=== PATIENT | female | born 1980 | race American Indian/Alaskan Native ===

== ENCOUNTER 2021-04-24 06:03 | Day surgery (SDC) | payer MEDICAID ==
--- NOTE | 2021-04-24 00:07 | History and Physical Report ---
History of Present Illness Date of examination: 04/21/21 History of present illness: 40 year old female with missed Medical and surgical treatment options discussed Discussed risks and benefits of expectant management, treatments with medications and dilatation and curretage. Patient desires dilatation and curr etage ] Vital Signs: Patient Profile: 40 Years Old Female LMP: 01/06/2021 Height: 65 inches Weight: 179 pounds BMI: 29.78 Temp: 98.0 degrees F BP sittin / 90 (left arm) Menstrual History: LMP (date): 01/06/2021 On BCP's at conception: no Current Method of Contraception: None Date of Last Pap Smear: 02/14/2021 Past History : 4 Term Births: 0 Premature Births: 2 Living Children: 2 Para: 2 Mult. Births: 0 Prev : 2 Aborta: 1 Elect. Ab: 0 Spont. Ab: 1 Ectopics: 0 # 1 Delivery date: 2001 Weeks Gestation: Full Term labor: no Delivery type: Stillbirtt Comments: Didn't given details about dleivery. Pt very vague about details of delivery. States , unknown cause. Possible thyroid disease, had symptoms similar to stroke. # 2 Delivery date: 2007 Weeks Gestation: 36 labor: yes Delivery type: Anesthesia type: spinal Infant Sex: Female weight: 5-11 Comments: d/t placenta previa. # 3 Delivery date: 2018 Weeks Gestation: 36 labor: yes Delivery type: Anesthesia type: spinal Delivery location: [place] weight: 5-3 Comments: Had Pre Eclampsia, was on magnesium after delivery. No weight gain in . # 4 Delivery type: SAB Comments: Doesn't remember too many details. Only that there were no complications or D&C needed. Active Medications: clonidine HCl 0.1 mg tablet (clonidine hcl) Take 1 tablet by mouth twice a day nifedipine 90 mg tablet extended release 24hr (nifedipine) Take 1 tablet by mouth once a day hydrochlorothiazide 25 mg tablet (hydrochlorothiazide) Aspirin Low Dose 81 mg tablet,delayed release (DR/EC) (aspirin) Current Allergies: * LATEX * IBUPROFEN Past Medical History: Hypertension Possibl Stroke/CVA 04/2020 Patient states had some memory loss Past Surgical History: X 2 2007, 2018 Tonsillectomy Nasal and sinus surgery Family History Summary: Uncle - Has Family History of Hypertension - Entered On: 02/14/2021 Uncle - Has Family History of CVA or Stroke - Entered On: 02/14/2021 PGF - Has Family History of Hypertension - Entered On: 02/14/2021 Father - Has Family History of Hypertension - Entered On: 02/14/2021 Mother - Has Family History of Hypertension - Entered On: 02/14/2021 Social History: Patient is Smoking History: Patient has never smoked. 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 Denies vaginal discharge, incontinence, dysuria, hematuria, urinary frequency, amenorrhea, menorrhagia, abnormal vaginal bleeding, pelvic pain, genital sores, decreased libido, painful periods, painful sex, urinary urgency, hot flashes, vaginal dryness, vaginal itching and vaginal odor. CV Denies chest pains, palpitations, syncope, dyspnea on exertion, orthopnea, PND and peripheral edema. Resp Denies cough, dyspnea at rest, excessive sputum, hemoptysis, wheezing and pleurisy. GI Denies nausea, vomiting, diarrhea, constipation, change in bowel habits, abdominal pain, melena, hematochezia, jaundice, gas/bloating, indigestion/heartburn, dysphagia and odynophagia. Breast Denies left breast lump, right breast lump, nipple discharge, bloody discharge from nipple, breast pain, abnormal mammogram and breast enlargement. Psych Denies depression, anxiety, irritability and mood swings. Past History Past Medical History: other (See HPI) Past Surgical History: , Other (See HPI) Social history: full code, other (See HPI) Family history: other (See HPI) Medications and Allergies Allergies Allergy/AdvReac Type Severity Reaction Status Date / Time ibuprofen Allergy Vomiting Verified 04/22/21 16:20 latex Allergy Hives Verified 04/22/21 16:20 Home Medications Medication Instructions Recorded Confirmed Last Taken Type Aspirin [Adult Aspirin] 81 mg PO DAILY 04/22/21 04/22/21 03/23/21 History NIFEdipine [Adalat cc] 90 mg PO DAILY 04/22/21 04/22/21 Unknown History cloNIDine [Catapres] 0.1 mg PO BID 04/22/21 04/22/21 Unknown History Active Meds: Active Medications Lactated Ringer's (Lactated Ringers) 1,000 mls @ 100 mls/hr IV DIRECT JACKIE Stop: 04/24/21 23:59 Midazolam HCl (Midazolam 2 Mg/2 Ml Inj) 2 mg IV PREOP NR Stop: 04/24/21 23:59 Review of Systems Constitutional: other (See HPI) Exam - Physical Exam Narrative exam: HEENT: normocephalic, no lesions or deformities Skin no abnormal lesions or rashes Chest: respiratory effort normal, clear to auscultation CV: regular, normal S1-S2, no murmur, no rub, no gallop Abdomen: normal bowel sounds; soft, nontender Neuro: no gross anomalities Extremities: no discoloration or edema 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 Discussed risk of surgery including infection, bleeding and risk of perforating her uterus. Questions answered. Patient understands and desires to proceed (2) Hypertension Status: Acute Qualifiers: Hypertension type: unspecified secondary hypertension Qualified Code(s): I15.9 - Secondary hypertension, unspecified; I15 - Secondary hypertension Plan to address problem: Patient has been advised that hypertension does increase risks of surgical and risks of post operative complications. (3) Abnormal results of other endocrine function studies Status: Acute Plan to address problem: Patient states currently is being worked up by her PCP Stressed the importance of discussing with anesthesiology Possible etiology of hypertension
[~2021-04-24 06:03] MED LIST: LACTATED RINGERS 1,000 ML IV SCH; MIDAZOLAM 2 MG/2 ML INJ IV NR
[2021-04-24] MEDS ORDERED: SILVER NITRATE APPLICATOR 1 EA TP ONE (07:05)
[2021-04-24] MEDS ORDERED: METHYLERGONOVINE MALEATE 0.2 MG/ML VIAL IM ONE ×3 (07:05→08:05)
[2021-04-24] MEDS ORDERED: fentaNYL 100 MCG/2 ML INJ ONE (07:08)
[2021-04-24] MEDS ORDERED: propofoL 200 MG/20 ML VIAL IV ONE (07:08)
[2021-04-24] MEDS ORDERED: MIDAZOLAM 2 MG/2 ML INJ ONE (07:08)
[2021-04-24] MEDS ORDERED: LIDOCAINE MPF (2%) 20 MG/1 ML VIAL 5 ML ONE (07:15)
[2021-04-24] MEDS ORDERED: ONDANSETRON 4 MG/2 ML INJ ONE (07:15)
[2021-04-24] MEDS ORDERED: dexAMETHasone 20 MG/5 ML VIAL ONE (07:15)
[2021-04-24] MEDS ORDERED: KETOROLAC 30 MG/1 ML INJ ONE (07:15)
[2021-04-24] MEDS ORDERED: SODIUM CHLORIDE 0.9% IRR 1,500 ML BOTTLE IR ONE (07:16)
--- NOTE | 2021-04-24 07:30 | Anesthesia Consultation ---
Anesthesia Consult and Med Hx Date of service: 04/24/21 - Airway Anesthetic Teeth Evaluation: Good ROM Head & Neck: Adequate Mental/Hyoid Distance: Inadequate Mallampati Class: Class IV Intubation Access Assessment: Possibly Difficult - Cardiac Exam Cardiac Exam: RRR - Pre-Operative Health Status ASA Pre-Surgery Classification: ASA3 Proposed Anesthetic Plan: General - Pulmonary Hx Smoking: No Hx Asthma: No Hx Sleep Apnea: Yes (Does not use CPAP) - Cardiovascular System Hx Hypertension: Yes - Central Nervous System CVA: Yes (Thought she haad a stroke but did not, does not know name of what she had) Hx Psychiatric Problems: No - Gastrointestinal Hx Gastroesophageal Reflux Disease: No - Endocrine Hx Renal Disease: Yes (adrenal dze) - Other Systems Hx Alcohol Use: No Hx Cancer: No
--- NOTE | 2021-04-24 07:31 | Anesthesia Day of Surgery ---
Anesthesia Day of Surgery - Day of Surgery Patient Examined: Yes Patient H&P Reviewed: Yes Patient is NPO: Yes Beta Blockers: No Dick's Test: N/A
[2021-04-24] MEDS ORDERED: HYDROcodone/ACETAMINOPHEN 5-325 MG TAB PO PRN (07:53)
[2021-04-24] MEDS ORDERED: ONDANSETRON 4 MG/2 ML INJ IV PRN (07:53)
[2021-04-24] MEDS ORDERED: HYDROmorphone 1 MG/1 ML INJ IV PRN (07:53)
[2021-04-24] MEDS ORDERED: ePHEDrine SULFATE 50 MG/1 ML INJ ONE (07:56)
--- NOTE | 2021-04-24 08:28 | Operative Report ---
Operative Report Operative Report: Date of procedure: April 24, 2021 Pre-operative diagnosis: Missed Post-operative diagnosis: Same Procedure name(s): Suction dilatation and curettage Surgeon: Juan Tobias MD Dishwashing Machine Operator: [email or web address] Anesthesia: General EBL: 100 mL Complications: None Findings: Uterus approximately 10-12 weeks in size. A large amount of tissue consistent with products of conception Specimen(s): Uterine contents Procedure: The patient was brought operating room where general anesthesia was induced without difficulty. Patient was placed in dorsal lithotomy position prepped and draped in the usual sterile manner. Rubber catheter was used to empty her bladder. Speculum placed in the vagina. Tenaculum was placed at 12:00. The cervix was dilated progressively with Hegar dilators. A 12 mm suction catheter was placed through the cervical os. Several passes of the suction catheter removed the uterine contents. A gentle curettage was done with a banjo curettte, until a gritty sensation was felt throughout the uterine cavity. Further suction with the suction curettage revealed no further products. All instruments were removed patient was hemostatic. She was awakened in the operating room and accompanied to recovery room in good condition.
--- NOTE | 2021-04-24 08:32 | Short Stay Summary ---
Short Stay Documentation Date of service: 04/24/21 - History Principal diagnosis: Missed H&P: dictated (See H&P in chart) Past Medical History: other (See HPI) Past Surgical History: , Other (See HPI) Social history: full code, other (See HPI) - Allergies and Medications Current Medications: Allergies ibuprofen Allergy (Verified 04/22/21 16:20) Vomiting latex Allergy (Verified 04/22/21 16:20) Hives Home Medications Medication Instructions Recorded Confirmed Last Taken Type Aspirin [Adult Aspirin] 81 mg PO DAILY 04/22/21 04/22/21 03/23/21 History NIFEdipine [Adalat cc] 90 mg PO DAILY 04/22/21 04/24/21 04/24/21 04:00 History cloNIDine [Catapres] 0.1 mg PO BID 04/22/21 04/24/21 04/24/21 04:00 History Acetaminophen/Codeine [Tylenol #3] 1 tab PO Q6H PRN #12 tablet 04/24/21 Unknown Rx DOXYCYCLINE Hyclate [Vibramycin 100 mg PO Q12HR #14 capsule 04/24/21 Unknown Rx CAP] Methylergonovine [Methergine] 0.2 mg PO Q8HR #6 tablet 04/24/21 Unknown Rx Active Medications Hydrocodone Bitart/Acetaminophen (Hydrocodone/Acetaminophen 5-325 Mg Tab) 2 each PO ONCE PRN PRN Reason: Pain, Moderate (4-6) Stop: 04/24/21 13:00 Hydromorphone HCl (Hydromorphone 1 Mg/1 Ml Inj) 0.5 mg IV Q10MIN PRN PRN Reason: Pain , Severe (7-10) Stop: 04/24/21 23:00 Lactated Ringer's (Lactated Ringers) 1,000 mls @ 100 mls/hr IV DIRECT JACKIE Stop: 04/24/21 23:59 Last Admin: 04/24/21 07:00 Dose: 100 mls/hr Documented by: Midazolam HCl (Midazolam 2 Mg/2 Ml Inj) 2 mg IV PREOP NR Stop: 04/24/21 23:59 Ondansetron HCl (Ondansetron 4 Mg/2 Ml Inj) 4 mg IV ONCE PRN PRN Reason: Nausea And Vomiting Stop: 04/24/21 13:00 - Physical exam General appearance: no acute distress Integumentary: no rash HEENT: Atraumatic Lungs: Normal air movement Breasts: deferred Heart: Regular rate Gastrointestinal: normal Female Genitourinary: normal Rectal Exam: deferred Extremities: no ischemia - Brief post op/procedure progress note Date of procedure: 04/24/21 (See dictated operative note for details) - Hospital course Hospital course: Patient was admitted underwent the above him procedure without any complications. Patient will be discharged with follow-up in office in 1-2 weeks for postop check. - Disposition Condition at discharge: Good Disposition: 01 HOME / SELF CARE / HOMELESS - Discharge Diagnoses (1) Missed Status: Acute (2) Hypertension Status: Acute Qualifiers: Hypertension type: unspecified secondary hypertension Qualified Code(s): I15.9 - Secondary hypertension, unspecified; I15 - Secondary hypertension (3) Abnormal results of other endocrine function studies Status: Acute Short Stay Discharge Plan Activity: advance as tolerated Diet: regular Additional Instructions: Patient to call office for any fever, chills, nausea, vomiting, heavy vaginal bleeding or pain not controlled by pain medication. Follow up with: PRIMARY CAREMD [Primary Care Provider] - 7 Days Prescriptions: Methylergonovine [Methergine] 0.2 mg PO Q8HR #6 tablet Acetaminophen/Codeine [Tylenol #3] 1 tab PO Q6H PRN #12 tablet PRN Reason: Pain DOXYCYCLINE Hyclate [Vibramycin CAP] 100 mg PO Q12HR #14 capsule
[2021-04-24 09:21] VITALS: BP 138/85
--- NOTE | 2021-04-24 10:28 | Post Anesthesia Evaluation ---
- Post Anesthesia Evaluation Patient Participated: Yes Airway Patent: Yes Stable Respiratory Function: Yes Nausea/Vomiting: No Temp > 96.8F: Yes Pain Manageable: Yes Adequeate Hydration: Yes Anesthesia Complications: No
== END 2021-04-24 09:50 | disposition home or self-care (01) ==
LOC: OR 06:03
PROVIDERS: ATTEND Obstetrics & Gynecology
DX: O02.1 Missed abortion (principal); Z20.822 Contact with and (suspected) exposure to COVID-19; I10 Essential (primary) hypertension; Z79.899 Other long term (current) drug therapy; Z91.040 Latex allergy status; Z88.8 Allergy status to other drugs, medicaments and biological substances; Z98.890 Other specified postprocedural states
CPT/HCPCS: 59820; 88305; J1100; J1885; J2210; J2250; J2405; J2704; J3010; J3490; J7120; U0003